=== PATIENT | female | born 2005 | race Caucasian/White ===

== ENCOUNTER 2025-03-07 15:16 | Outpatient (CLI) | payer BC, SELFPAY ==
[2025-03-07 23:08] LABS: HIV-1/2 Ag & Ab Screen Negative (Negative)
[2025-03-07 23:26] LABS: Hepatitis C Ab w Rflx HCV PCR Negative (Negative)
[2025-03-08 10:38] LABS: Syphilis Serology (RPR) Negative (Negative)
== END 2025-03-07 15:17 | disposition home or self-care (01) ==
LOC: LBO 15:18
PROVIDERS: PCP Student in an Organized Health Care Education/Training Program; Visit Provider Physician Assistant Medical
DX: Z11.3 Encounter for screening for infections with a predominantly sexual mode of transmission (principal)
CPT/HCPCS: 36415; 86803; 87389; 86592

== ENCOUNTER 2025-03-07 16:34 | Outpatient (REF) | payer BC, SELFPAY ==
[2025-03-07 15:26] LABS: C & S Indicated? No; RBC Negative HPF (0-2); WBC Negative HPF (0-5)
[2025-03-08 12:26] LABS: Chlamydia Result Negative (Negative); GC Result Negative (Negative)
== END 2025-03-07 16:35 | disposition home or self-care (01) ==
LOC: LBN 16:34
PROVIDERS: PCP Student in an Organized Health Care Education/Training Program; Visit Provider Physician Assistant Medical
DX: R35.0 Frequency of micturition (principal)
CPT/HCPCS: 87491; 87591; 81015; 87086; 87480; 87510; 87660